=== PATIENT | male | born 1980 ===

== ENCOUNTER 2021-10-12 00:37 | Inpatient (IN) ==
[2021-10-12] MEDS ORDERED: ACETAMINOPHEN 325 MG TABLET PO PRN (01:26)
[2021-10-12] MEDS ORDERED: diphenhydrAMINE CAP 25 MG CAPSULE PO PRN (01:26)
[2021-10-12] MEDS ORDERED: hydrALAZINE 20 MG/1 ML VIAL IV PRN (01:26)
[2021-10-12] MEDS ORDERED: GLUCAGON 1 MG VIAL IM PRN ×2 (01:26→06:12)
[2021-10-12] MEDS ORDERED: MORPHINE 2 MG/1 ML SYRINGE IV PRN (01:26)
[2021-10-12] MEDS ORDERED: NICOTINE 21 MG/24 HR PATCH TRANSDERM PRN (01:26)
[2021-10-12] MEDS ORDERED: ONDANSETRON 4 MG/2 ML VIAL IV PRN (01:26)
[2021-10-12] MEDS ORDERED: guaiFENesin/DM ER 600-30 MG TABLET PO PRN (01:26)
[2021-10-12] MEDS ORDERED: ZALEPLON 5 MG CAPSULE PO PRN (01:26)
[2021-10-12] MEDS ORDERED: DEXTROSE 10% 250 ML BAG IV PRN (01:26)
[2021-10-12 02:43] LABS: Basophils % 0.3 % (0.0-0.8); Eosinophils % 0.2 % (0.00-10.9); Hematocrit 45.8 VOL% (42.0-52.0); Hemoglobin 15.2 GM/DL (14.0-18.0); Immature Granulocytes % 0.4 %; Immature Granulocytes Absolute 0.04 #; Lymphocytes % 9.1 % (21.2-54.2); Mean Corpuscular HGB Conc 33.2 GM/DL (32-36); Mean Corpuscular Volume 89.8 FL (87-102); Mean Platelet Volume 10.8 FL (9.6-12.0); Monocytes % 9.2 % (1.7-12.7); Neutrophils % 80.8 % (38.7-73.9); Platelet Count 171 T/CUMM (130-400); Red Cell Distribution Width 12.8 % (9.3-17.3); White Blood Count 10.4 T/CUMM (4-12)
[2021-10-12 02:54] LABS: PT Patient Result 11.3 SECS (10.5-12.0); Partial Thromboplastin Time 31.4 SECS (23.7-32.9)
[2021-10-12 03:06] LABS: Calcium 9.2 MG/DL (8.5-10.1); Osmolality,Calculated 279.7 MOS/KG (273-304); Potassium 4.1 MMOL/L (3.5-5.1)
[2021-10-12] MEDS: CLINDAMYCIN INJ 600 MG/50 ML PREMIX IV SCH ×4 (03:30→22:05)
[2021-10-12] MEDS: SODIUM CHLORIDE 0.9% 1,000 ML IV SCH ×2 (03:46→16:55)
[2021-10-12] MEDS ORDERED: DEXTROSE 50% 25 GM/50 ML VIAL IV PRN (06:12)
[2021-10-12] MEDS: VANCOMYCIN INJ 1,500 MG in SODIUM CHLORIDE 0.9% 500 ML IV SCH ×2 (10:41→23:35)
[2021-10-12] MEDS: INSULIN LISPRO 100 UNIT/ML SUBCUT SCH ×4 (10:41→22:11)
[2021-10-12] MEDS: DOCUSATE SODIUM 100 MG CAPSULE PO SCH ×2 (10:43→22:19)
[2021-10-12] MEDS: PANTOPRAZOLE 40 MG TABLET PO SCH (10:43)
[2021-10-12] MEDS: CHLORHEXIDINE 0.12% ORAL RINSE 60 ML BOTTLE SWISH/SPIT SCH ×2 (11:15→22:05)
[2021-10-12] MEDS ORDERED: LIDOCAINE 1%/EPI INJ 20 ML VIAL ONE (11:33)
[2021-10-12] MEDS ORDERED: BUPIVACAINE MPF 0.25% 10 ML VIAL ONE (11:33)
[2021-10-12] MEDS ORDERED: propofoL 200 MG/20 ML VIAL IV ONE (11:35)
[2021-10-12] MEDS ORDERED: LIDOCAINE 2% 5 ML VIAL ONE (11:35)
[2021-10-12] MEDS ORDERED: ROCURONIUM 50 MG/5 ML VIAL IV ONE (11:35)
[2021-10-12] MEDS ORDERED: SUCCINYLCHOLINE 200 MG/10 ML VIAL ONE (11:35)
[2021-10-12] MEDS ORDERED: ETOMIDATE 40 MG/20 ML VIAL IV ONE (11:35)
[2021-10-12] MEDS ORDERED: MIDAZOLAM 2 MG/2 ML VIAL ONE (11:36)
[2021-10-12] MEDS ORDERED: fentaNYL 100 MCG/2 ML VIAL ONE (11:36)
[2021-10-12] MEDS ORDERED: DEXAMETHASONE 4 MG/1 ML VIAL ONE (12:25)
[2021-10-12] MEDS ORDERED: KETOROLAC 30 MG/1 ML VIAL ONE (12:25)
[2021-10-12] MEDS ORDERED: ONDANSETRON 4 MG/2 ML VIAL ONE (12:25)
[2021-10-12] MEDS ORDERED: SEVOFLURANE 1 UNIT/15 MINUTE INH ONE (12:46)
[2021-10-13] MEDS: CLINDAMYCIN INJ 600 MG/50 ML PREMIX IV SCH ×2 (04:25→12:59)
[2021-10-13] MEDS: SODIUM CHLORIDE 0.9% 1,000 ML IV SCH (05:22)
[2021-10-13 08:30] VITALS: BP 137/89
[2021-10-13] MEDS: INSULIN LISPRO 100 UNIT/ML SUBCUT SCH (12:59)
[2021-10-13] MEDS: PANTOPRAZOLE 40 MG TABLET PO SCH (13:00)
[2021-10-13] MEDS: CHLORHEXIDINE 0.12% ORAL RINSE 60 ML BOTTLE SWISH/SPIT SCH (13:00)
[2021-10-13] MEDS: DOCUSATE SODIUM 100 MG CAPSULE PO SCH (13:00)
[2021-10-13] MEDS: VANCOMYCIN INJ 1,500 MG in SODIUM CHLORIDE 0.9% 500 ML IV SCH (13:00)
== END 2021-10-13 11:11 | disposition home or self-care (01) | DRG 142 ==
LOC: N.TELEN 00:37
PROVIDERS: ADMIT Internal Medicine; ATTEND Internal Medicine